=== PATIENT | male | born 1980 | race Hispanic/Latino ===

== ENCOUNTER 2017-12-24 00:32 | Inpatient (IN) | payer SELFPAY ==
[2017-12-24] MEDS ORDERED: ASPIRIN PO ONE (01:07)
[2017-12-24 01:25] LABS: Basophils # (Auto) 0.1 K/mm3 (0.0-0.1); Basophils % (Auto) 1.2 % (0.0-1.8); Eosinophils # (Auto) 1.1 K/mm3 (0.0-0.4); Eosinophils % (Auto) 14.5 % (0.0-4.3); Hematocrit 44.3 % (35.5-45.6); Hemoglobin 14.6 gm/dl (11.8-15.2); Lymphocytes # (Auto) 1.7 K/mm3 (1.2-5.4); Lymphocytes % (Auto) 21.4 % (13.4-35.0); Mean Corpuscular HGB Conc 33 % (32-34); Mean Corpuscular Hemoglobin 29 pg (28-32); Mean Corpuscular Volume 89 fl (84-94); Monocytes # (Auto) 1.1 K/mm3 (0.0-0.8); Monocytes % (Auto) 13.8 % (0.0-7.3); Platelet Count 236 K/mm3 (140-440); Red Blood Count 5.01 M/mm3 (3.65-5.03)
[2017-12-24 01:27] LABS: Red Cell Distribution Width 21.8 % (13.2-15.2)
--- NOTE | 2017-12-24 01:49 | XRay Report ---
FINAL REPORT PROCEDURE: XR CHEST ROUTINE 2V TECHNIQUE: PA and lateral chest radiographs were obtained. CPT 81039 HISTORY: JOSHUA/Chestpain COMPARISON: No prior studies are available for comparison. FINDINGS: Heart: Normal. Mediastinum/Vessels: Normal. Lungs/Pleural space: Lungs are expanded and clear. There are mild fibrotic changes in the right lung apex. There are no infiltrates, effusions or pneumothoraces.. Bony thorax: No acute osseous abnormality. Other: IMPRESSION: Normal heart and lungs..
[2017-12-24 01:50] LABS: INR 1.79 (0.87-1.13); Partial Thromboplastin Time 38.2 Sec. (24.2-36.6)
[2017-12-24 02:30] LABS: BUN/Creatinine Ratio 18; Blood Urea Nitrogen 16 mg/dL (9-20); Calcium 9.3 mg/dL (8.4-10.2); Hemolysis Index 5
--- NOTE | 2017-12-24 06:10 | Emergency Department Report ---
ED Chest Pain HPI - General Chief Complaint: Chest Pain Stated Complaint: CHEST,ARM PAIN,SOB Time Seen by Provider: 12/24/17 06:08 Source: patient Mode of arrival: Ambulatory Limitations: No Limitations - History of Present Illness Initial Comments: 37-year-old male who states he's had chest pain for the past 2 days. It somewhat radiates to the left arm and to the left lateral abdomen. He states it is increased by breathing. He admits shortness of breath which began yesterday. He states that he last had his INR checked 3 weeks ago. He has had previous hospitalizations for pulmonary embolism at [facility] and DVT in his right leg of uncertain cause. He has a history of CHF. He previously had an ejection fraction of 20% but states this has improved. He admits he missed several days of his Coumadin but started it back up again recently. Complaint: chest pain -: Gradual (gradual onset 2 days ago) Onset: during rest Pain Location: left chest Pain Radiation: none Severity: moderate Quality: aching Consistency: constant Improves With: nothing Worsens With: nothing re: other (cough). denies: nausea, vomting Other Symptoms: cough. denies: fever, syncope Treatments Prior to Arrival: none Aspirin use within the Past 7 Days: (0) No - Related Data Home Medications Medication Instructions Recorded Confirmed Last Taken Coreg 3.125 mg PO BID 12/24/17 12/24/17 Unknown Lasix 80 mg PO DAILY 12/24/17 12/24/17 Unknown Lisinopril 5 mg PO DAILY 12/24/17 12/24/17 Unknown Warfarin 5 mg PO DAILY 12/24/17 12/24/17 Unknown Allergies Allergy/AdvReac Type Severity Reaction Status Date / Time No Known Allergies Allergy Verified 12/24/17 06:20 Heart Score - HEART Score History: Slightly suspicious EKG: Non-specific Age: < 45 Risk factors: 1-2 risk factors Troponin: < normal limit HEART Score: 2 - Critical Actions Critical Actions: 0-3 pts:0.9-1.7%risk of adverse cardiac event.Candidate for discharge ED Review of Systems ROS: Stated complaint: CHEST,ARM PAIN,SOB Other details as noted in HPI Constitutional: denies: chills, fever Eyes: denies: eye pain, eye discharge, vision change ENT: denies: ear pain, throat pain Respiratory: cough (states white phlegm no hemoptysis), shortness of breath. denies: wheezing Cardiovascular: chest pain. denies: palpitations Endocrine: no symptoms reported Gastrointestinal: denies: abdominal pain, nausea, diarrhea Genitourinary: denies: urgency, dysuria Musculoskeletal: denies: back pain, joint swelling, arthralgia Skin: denies: rash, lesions Neurological: denies: headache, weakness, paresthesias Psychiatric: denies: anxiety, depression Hematological/Lymphatic: denies: easy bleeding, easy bruising ED Past Medical Hx - Past Medical History Hx Congestive Heart Failure: Yes Additional medical history: DVT, Overactive Bladder, Pneumonia - Surgical History Additional Surgical History: Tonsilectomy - Social History Smoking Status: Current Every Day Smoker Substance Use Type: None - Medications Home Medications: Home Medications Medication Instructions Recorded Confirmed Last Taken Type Coreg 3.125 mg PO BID 12/24/17 12/24/17 Unknown History Lasix 80 mg PO DAILY 12/24/17 12/24/17 Unknown History Lisinopril 5 mg PO DAILY 12/24/17 12/24/17 Unknown History Warfarin 5 mg PO DAILY 12/24/17 12/24/17 Unknown History ED Physical Exam - General Limitations: No Limitations General appearance: alert, in no apparent distress - Head Head exam: Present: atraumatic, normocephalic - Eye Eye exam: Present: normal appearance. Absent: scleral icterus - ENT ENT exam: Present: mucous membranes moist - Neck Neck exam: Present: normal inspection. Absent: tenderness, meningismus - Respiratory Respiratory exam: Present: normal lung sounds bilaterally. Absent: respiratory distress - Cardiovascular Cardiovascular Exam: Present: regular rate, normal rhythm. Absent: systolic murmur, diastolic murmur, rubs, gallop - GI/Abdominal GI/Abdominal exam: Present: soft, normal bowel sounds. Absent: distended, tenderness, guarding, rebound, rigid - Rectal Rectal exam: Present: deferred - Extremities Exam Extremities exam: Present: normal inspection - Back Exam Back exam: Present: normal inspection - Neurological Exam Neurological exam: Present: alert, oriented X3, CN II-XII intact. Absent: motor sensory deficit - Psychiatric Psychiatric exam: Present: normal affect, normal mood - Skin Skin exam: Present: warm, dry, intact, normal color. Absent: rash ED Course Vital Signs 12/24/17 12/24/17 12/24/17 01:00 06:20 07:35 Temperature 97.8 F Pulse Rate 99 H 108 H Respiratory 18 21 16 Rate Blood Pressure 110/73 Blood Pressure 126/85 [Left] O2 Sat by Pulse 100 97 Oximetry 12/24/17 08:30 Temperature Pulse Rate 100 H Respiratory 21 Rate Blood Pressure 133/77 Blood Pressure [Left] O2 Sat by Pulse 94 Oximetry - Reevaluation(s) Reevaluation #1: She does have a persistent tachycardia at about 110. He denies chest pain now. He is not short of breath. He states he's never had a catheterization. He's had a cardiomyopathy since May 2017. Be referred to the hospitalist service for further evaluation of his chest pain and CHF. 12/24/17 08:58 WHITLEY score - Whitley Score Age > 65: (0) No Aspirin use within the Past 7 Days: (0) No 3 or more CAD Risk Factors: (0) No 2 or more Angina events in past 24 hrs: (0) No Known CAD with more than 50% Stenosis: (0) No Elevated Cardiac Markers: (0) No ST Deviation Greater than 0.5mm: (0) No WHITLEY Score: 0 ED Medical Decision Making - Lab Data Result diagrams: 12/24/17 01:13 12/24/17 01:13 Laboratory Results - last 24 hr 12/24/17 12/24/17 12/24/17 01:13 01:13 01:13 WBC 7.9 RBC 5.01 Hgb 14.6 Hct 44.3 MCV 89 MCH 29 MCHC 33 RDW 21.8 H Plt Count 236 Lymph % (Auto) 21.4 Carver % (Auto) 13.8 H Eos % (Auto) 14.5 H Baso % (Auto) 1.2 Lymph # 1.7 Carver # 1.1 H Eos # 1.1 H Baso # 0.1 Seg Neutrophils % 49.1 Seg Neutrophils # 3.9 PT 21.9 H INR 1.79 H APTT 38.2 H Sodium 141 Potassium 4.7 Chloride 99.1 Carbon Dioxide 28 Anion Gap 19 BUN 16 Creatinine 0.9 Estimated GFR > 60 BUN/Creatinine Ratio 18 Glucose 71 L Calcium 9.3 Troponin T < 0.010 NT-Pro-B Natriuret Pep 1704 H 12/24/17 03:59 WBC RBC Hgb Hct MCV MCH MCHC RDW Plt Count Lymph % (Auto) Carver % (Auto) Eos % (Auto) Baso % (Auto) Lymph # Carver # Eos # Baso # Seg Neutrophils % Seg Neutrophils # PT INR APTT Sodium Potassium Chloride Carbon Dioxide Anion Gap BUN Creatinine Estimated GFR BUN/Creatinine Ratio Glucose Calcium Troponin T < 0.010 NT-Pro-B Natriuret Pep - EKG Data -: EKG Interpreted by Me EKG shows normal: sinus rhythm, axis, intervals, ST-T waves Rate: tachycardia - EKG Data Interpretation: other (incomplete right bundle branch block/prolonged QT) - Radiology Data interpreted by me: Lung Miranda: Focal areas of discoid atelectasis are identified in the posterior right upper lobe. Otherwise, the lungs are adequately aerated. No underlying parenchymal lung disease is appreciated. Pleural Spaces: Small layering left pleural effusion and trace right pleural effusion are identified. Musculoskeletal: Intact. Mild thoracic spondylosis. IMPRESSION: No evidence for pulmonary embolus. Borderline heart size, small left pleural effusion, trace right pleural effusion. Mild CHF? Critical care attestation.: If time is entered above; I have spent that time in minutes in the direct care of this critically ill patient, excluding procedure time. ED Disposition Clinical Impression: Subtherapeutic international normalized ratio (INR) Chest pain Qualifiers: Chest pain type: unspecified Qualified Code(s): R07.9 - Chest pain, unspecified Congestive heart failure Qualifiers: Heart failure type: unspecified Heart failure chronicity: acute on chronic Qualified Code(s): I50.9 - Heart failure, unspecified Disposition: OP ADMIT IP TO THIS HOSP Is pt being admited?: Yes Does the pt Need Aspirin: Yes Condition: Stable Instructions: Chest Pain (ED) Referrals: PRIMARY CARE, [Primary Care Provider] - 3-5 Days Time of Disposition: 09:00
[2017-12-24] MEDS ORDERED: LOVENOX SUB-Q ONE (06:25)
[2017-12-24] MEDS ORDERED: NORCO 5/325 PO ONE (07:14)
--- NOTE | 2017-12-24 08:16 | Cat Scan Report ---
CTA CHEST: HISTORY: Left chest pain, history of pulmonary embolus. COMPARISON: Chest x-ray performed 12/23/17. TECHNIQUE: Helical CT in 1.25mm intervals following IV contrast. Pulmonary embolus protocol. Sagittal and coronal reformatted images. Rotational MIP images. FINDINGS: Contrast bolus is satisfactory. No pulmonary embolus is identified. Thyroid gland: Normal. Tracheobronchial tree: Normal. Esophagus: Normal. Heart: The heart is borderline to mildly increased in size. Pericardium: Normal. Mediastinum: Normal. Lung Miranda: Focal areas of discoid atelectasis are identified in the posterior right upper lobe. Otherwise, the lungs are adequately aerated. No underlying parenchymal lung disease is appreciated. Pleural Spaces: Small layering left pleural effusion and trace right pleural effusion are identified. Musculoskeletal: Intact. Mild thoracic spondylosis. IMPRESSION: No evidence for pulmonary embolus. Borderline heart size, small left pleural effusion, trace right pleural effusion. Mild CHF?
[2017-12-24] MEDS ORDERED: PERCOCET 5/325 PO PRN (09:46)
[2017-12-24] MEDS ORDERED: SODIUM CHLORIDE FLUSH SYRINGE 10 ML IV PRN ×2 (09:46)
[2017-12-24] MEDS ORDERED: NITROSTAT SL PRN (09:46)
[2017-12-24] MEDS ORDERED: TYLENOL PO PRN (09:46)
[2017-12-24] MEDS ORDERED: ZOFRAN IV PRN (09:46)
--- NOTE | 2017-12-24 09:51 | History and Physical Report ---
History of Present Illness Date of examination: 12/24/17 Date of admission: 12/24/17 Chief complaint: chest pain History of present illness: 37 year old male with hx of chronic bronchitis, continued tobacco use >20pack year hx, cardiomypoathy and presumed CHF per patient with recent hospitalization about a month ago presenting to the ER with complaints of chest pain that started 2 days ago while at rest, 7/10 in intensity and now improved, unchanged in character from prior, with associated shortness of breath. Per patient he started having worseing shortness of breathing in the last two days with coughing spells and shortly after chest pain. Cough is non productive. He denies any fever, nausea, vomiting or diarrhea. He denies any sick contact except his recent hospitalization Past History Past Medical History: CAD, COPD, hypertension, hyperlipidemia Past Surgical History: No surgical history Social history: single, smoking Family history: no significant family history Medications and Allergies Allergies Allergy/AdvReac Type Severity Reaction Status Date / Time No Known Allergies Allergy Verified 12/24/17 06:20 Home Medications Medication Instructions Recorded Confirmed Last Taken Type Coreg 3.125 mg PO BID 12/24/17 12/24/17 Unknown History Lasix 80 mg PO DAILY 12/24/17 12/24/17 Unknown History Lisinopril 5 mg PO DAILY 12/24/17 12/24/17 Unknown History Warfarin 5 mg PO DAILY 12/24/17 12/24/17 Unknown History Active Meds: Active Medications Acetaminophen (Tylenol) 650 mg PO Q4H PRN PRN Reason: Pain MILD(1-3)/Fever >100.5/COLUNGA Aspirin (Ecotrin) 325 mg PO QDAY [facility] Atorvastatin Calcium (Lipitor) 40 mg PO QHS [facility] Miscellaneous Medication (Coreg) 3.125 mg PO BID [facility] Miscellaneous Medication (Lasix) 80 mg PO DAILY [facility] Miscellaneous Medication (Lisinopril) 5 mg PO DAILY [facility] Miscellaneous Medication (Warfarin) 5 mg PO DAILY [facility] Nitroglycerin (Nitrostat) 0.4 mg SL Q5M PRN PRN Reason: Chest Pain Ondansetron HCl (Zofran) 4 mg IV Q8H PRN PRN Reason: Nausea And Vomiting Oxycodone/Acetaminophen (Percocet 5/325) 1 tab PO Q6H PRN PRN Reason: Pain, Moderate (4-6) Sodium Chloride (Sodium Chloride Flush Syringe 10 Ml) 10 ml IV PRN PRN PRN Reason: LINE FLUSH Sodium Chloride (Sodium Chloride Flush Syringe 10 Ml) 10 ml IV BID ESTHER Sodium Chloride (Sodium Chloride Flush Syringe 10 Ml) 10 ml IV PRN PRN PRN Reason: LINE FLUSH Review of Systems Constitutional: no weight loss, no weight gain, no fever, no chills, no sweats, no fatigue, no weakness, no malaise, no lethargy Cardiovascular: chest pain, shortness of breath, dyspnea on exertion, no rapid/ irregular heart beat, no lightheadedness, no paroxysmal nocturnal dyspnea Respiratory: cough, shortness of breath, dyspnea on exertion, wheezing, no cough with sputum, no hemoptysis, no congestion Gastrointestinal: no abdominal pain, no nausea, no vomiting, no diarrhea, no constipation, no coffee ground emesis Integumentary: no rash Exam - Constitutional Vitals: Temp Pulse Resp BP Pulse Ox 97.8 F 107 H 18 140/102 97 12/24/17 01:00 12/24/17 09:30 12/24/17 09:30 12/24/17 09:30 12/24/17 09:30 General appearance: Present: mild distress - EENT Eyes: Present: PERRL, EOM intact - Neck Neck: Present: normal ROM - Respiratory Respiratory: bilateral: wheezing - Cardiovascular Rhythm: regular Heart Sounds: Present: S1 & S2. Absent: systolic murmur, diastolic murmur - Extremities Extremities: no ischemia, pulses intact, pulses symmetrical, No edema, normal temperature, Full ROM Peripheral Pulses: within normal limits - Abdominal General gastrointestinal: Present: soft, non-tender, non-distended, normal bowel sounds - Integumentary Integumentary: Present: clear, warm, dry - Musculoskeletal Musculoskeletal: strength equal bilaterally - Psychiatric Psychiatric: appropriate mood/affect, intact judgment & insight, memory intact, cooperative - Neurologic Neurologic: CNII-XII intact, moves all extremities - Allied Health Allied health notes reviewed: nursing Results - Labs CBC & Chem 7: 12/24/17 10:16 12/24/17 10:16 Labs: Laboratory Last Values WBC 7.9 K/mm3 (4.5-11.0) 12/24/17 01:13 RBC 5.01 M/mm3 (3.65-5.03) 12/24/17 01:13 Hgb 14.6 gm/dl (11.8-15.2) 12/24/17 01:13 Hct 44.3 % (35.5-45.6) 12/24/17 01:13 MCV 89 fl (84-94) 12/24/17 01:13 MCH 29 pg (28-32) 12/24/17 01:13 MCHC 33 % (32-34) 12/24/17 01:13 RDW 21.8 % (13.2-15.2) H 12/24/17 01:13 Plt Count 236 K/mm3 (140-440) 12/24/17 01:13 Lymph % (Auto) 21.4 % (13.4-35.0) 12/24/17 01:13 [place] % (Auto) 13.8 % (0.0-7.3) H 12/24/17 01:13 Eos % (Auto) 14.5 % (0.0-4.3) H 12/24/17 01:13 Baso % (Auto) 1.2 % (0.0-1.8) 12/24/17 01:13 Lymph # 1.7 K/mm3 (1.2-5.4) 12/24/17 01:13 [place] # 1.1 K/mm3 (0.0-0.8) H 12/24/17 01:13 Eos # 1.1 K/mm3 (0.0-0.4) H 12/24/17 01:13 Baso # 0.1 K/mm3 (0.0-0.1) 12/24/17 01:13 Seg Neutrophils % 49.1 % (40.0-70.0) 12/24/17 01:13 Seg Neutrophils # 3.9 K/mm3 (1.8-7.7) 12/24/17 01:13 PT 21.9 Sec. (12.2-14.9) H 12/24/17 01:13 INR 1.79 (0.87-1.13) H 12/24/17 01:13 APTT 38.2 Sec. (24.2-36.6) H 12/24/17 01:13 Sodium 141 mmol/L (137-145) 12/24/17 01:13 Potassium 4.7 mmol/L (3.6-5.0) 12/24/17 01:13 Chloride 99.1 mmol/L (98-107) 12/24/17 01:13 Carbon Dioxide 28 mmol/L (22-30) 12/24/17 01:13 Anion Gap 19 mmol/L 12/24/17 01:13 BUN 16 mg/dL (9-20) 12/24/17 01:13 Creatinine 0.9 mg/dL (0.8-1.5) 12/24/17 01:13 Estimated GFR > 60 ml/min 12/24/17 01:13 BUN/Creatinine Ratio 18 % 12/24/17 01:13 Glucose 71 mg/dL (75-100) L 12/24/17 01:13 Calcium 9.3 mg/dL (8.4-10.2) 12/24/17 01:13 Troponin T < 0.010 ng/mL (0.00-0.029) 12/24/17 06:50 NT-Pro-B Natriuret Pep 1704 pg/mL (0-450) H 12/24/17 01:13 - Imaging and Cardiology Chest x-ray: image reviewed (no acute pathology) Assessment and Plan Assessment and plan: 37 year old male with hx of chronic bronchitis, continued tobacco use >20pack year hx, cardiomypoathy and presumed CHF per patient with recent hospitalization about a month ago presenting to the ER with complaints of chest pain that started 2 days ago while at rest, 7/10 in intensity and now improved, unchanged in character from prior, with associated shortness of breath. Atypical chest pain with likely musculoskeletal etiology from cough Acute on Chronic bronchitis COPD with acute exacerbation Acute on chronic Respiratory failure with demonstrable wheezing Tobacco use disorder cardiomyopathy HTN PE/DVT per hx Plan Admit to Tele Cardiac consult Dounebs, IV steroids, Emperic abx Obtain records from [facility] Tobacco cessation 15 mins O2, statin, asa, coumadin, Lisinopril DVT/GI prophy Patient requires inpatient admission due to cardiac hx of impending respiratory failure without adequate treatment Advance Directives: Yes Plan of care discussed with patient/family: Yes
[2017-12-24] MEDS ORDERED: NON-FORMULARY (Coreg 3.125 MG) PO SCH (10:00)
[2017-12-24] MEDS ORDERED: WARFARIN 5 MG PO SCH (10:00)
[2017-12-24] MEDS ORDERED: NON-FORMULARY (Lisinopril 5 MG) PO SCH (10:00)
[2017-12-24] MEDS ORDERED: LASIX 80 MG PO SCH (10:00)
[2017-12-24 10:34] LABS: Basophils # (Auto) 0.1 K/mm3 (0.0-0.1); Basophils % (Auto) 1.3 % (0.0-1.8); Eosinophils # (Auto) 0.9 K/mm3 (0.0-0.4); Eosinophils % (Auto) 12.6 % (0.0-4.3); Hematocrit 47.4 % (35.5-45.6); Lymphocytes # (Auto) 1.3 K/mm3 (1.2-5.4); Lymphocytes % (Auto) 18.7 % (13.4-35.0); Mean Corpuscular HGB Conc 34 % (32-34); Mean Corpuscular Hemoglobin 30 pg (28-32); Mean Corpuscular Volume 88 fl (84-94); Monocytes # (Auto) 0.8 K/mm3 (0.0-0.8); Monocytes % (Auto) 11.1 % (0.0-7.3); Platelet Count 246 K/mm3 (140-440); Red Blood Count 5.39 M/mm3 (3.65-5.03)
[2017-12-24] MEDS ORDERED: LASIX ONE (10:42)
[2017-12-24] MEDS ORDERED: PROVENTIL IH PRN (10:46)
[2017-12-24] MEDS: SODIUM CHLORIDE FLUSH SYRINGE 10 ML IV SCH ×2 (10:48→22:45)
[2017-12-24] MEDS: LASIX PO SCH (10:48)
[2017-12-24] MEDS: ZESTRIL PO SCH (10:48)
[2017-12-24] MEDS: COREG PO SCH ×2 (10:48→22:47)
[2017-12-24 10:54] LABS: BUN/Creatinine Ratio 18; Blood Urea Nitrogen 14 mg/dL (9-20); Calcium 9.4 mg/dL (8.4-10.2); Hemolysis Index 14
[2017-12-24] MEDS ORDERED: SOLU-Medrol IV SCH (12:00)
--- NOTE | 2017-12-24 12:34 | Consultation ---
History of Present Illness Consult date: 12/24/17 Consult reason: chest pain History of present illness: Mr Song is a 37 year old male with a history of nonischemic cardiomyopathy by stress thallium test that reports no ischemia but an ejection fraction of 20% by echocardiogram. He is on medical therapy and dietary restriction, which the patient reports he is compliant with. He has a history of DVT/PE and is on warfarin for oral anticoagulation therapy. He presents to the emergency with complaints of shortness of breath and chest pain thus this cardiac consultation. Patient also reports coughs and congestion. He denies fever and chills. He denies lower extremity edema. Chest x -ray reports no evidence of heart failure. Labs shows an INR of 1.79. He has a normal WBC. His ECG shows a sinus rhythm with a right bundle branch. Medications and Allergies Allergies Allergy/AdvReac Type Severity Reaction Status Date / Time No Known Allergies Allergy Verified 12/24/17 06:20 Home Medications Medication Instructions Recorded Confirmed Last Taken Type Coreg 3.125 mg PO BID 12/24/17 12/24/17 Unknown History Lasix 80 mg PO DAILY 12/24/17 12/24/17 Unknown History Lisinopril 5 mg PO DAILY 12/24/17 12/24/17 Unknown History Warfarin 5 mg PO DAILY 12/24/17 12/24/17 Unknown History Active Meds: Active Medications Acetaminophen (Tylenol) 650 mg PO Q4H PRN PRN Reason: Pain MILD(1-3)/Fever >100.5/COLUNGA Albuterol (Proventil) 2.5 mg IH Q4HRT PRN PRN Reason: Shortness Of Breath Albuterol/Ipratropium (Duoneb *Not For Prn Use*) 1 ampul IH TIDRT [facility] Aspirin (Ecotrin) 325 mg PO QDAY [facility] Atorvastatin Calcium (Lipitor) 40 mg PO QHS [facility] Carvedilol (Coreg) 3.125 mg PO BID [facility] Last Admin: 12/24/17 10:48 Dose: 3.125 mg Furosemide (Lasix) 80 mg PO QDAY [facility] Last Admin: 12/24/17 10:48 Dose: 80 mg Lisinopril (Zestril) 5 mg PO QDAY [facility] Last Admin: 12/24/17 10:48 Dose: 5 mg Methylprednisolone Sodium Succinate (Solu-Medrol) 40 mg IV Q12HR [facility] Nitroglycerin (Nitrostat) 0.4 mg SL Q5M PRN PRN Reason: Chest Pain Ondansetron HCl (Zofran) 4 mg IV Q8H PRN PRN Reason: Nausea And Vomiting Oxycodone/Acetaminophen (Percocet 5/325) 1 tab PO Q6H PRN PRN Reason: Pain, Moderate (4-6) Sodium Chloride (Sodium Chloride Flush Syringe 10 Ml) 10 ml IV BID [facility] Last Admin: 12/24/17 10:48 Dose: 10 ml Sodium Chloride (Sodium Chloride Flush Syringe 10 Ml) 10 ml IV PRN PRN PRN Reason: LINE FLUSH Warfarin Sodium (Coumadin) 5 mg PO DAILY@1700 [facility] Physical Examination Vital Signs Temp Pulse Resp BP Pulse Ox 97.8 F 99 H 18 110/73 100 12/24/17 01:00 12/24/17 01:00 12/24/17 01:00 12/24/17 01:00 12/24/17 01:00 General appearance: no acute distress HEENT: Positive: PERRL Cardiac: Positive: Reg Rate and Rhythm Results 12/24/17 10:16 12/24/17 10:16 Coagulation 12/24/17 Range/Units 01:13 PT 21.9 H (12.2-14.9) Sec. INR 1.79 H (0.87-1.13) APTT 38.2 H (24.2-36.6) Sec. CBC 12/24/17 12/24/17 Range/Units 01:13 10:16 WBC 7.9 6.9 (4.5-11.0) K/mm3 RBC 5.01 5.39 H (3.65-5.03) M/mm3 Hgb 14.6 16.0 H (11.8-15.2) gm/dl Hct 44.3 47.4 H (35.5-45.6) % Plt Count 236 246 (140-440) K/mm3 Lymph # 1.7 1.3 (1.2-5.4) K/mm3 [place] # 1.1 H 0.8 (0.0-0.8) K/mm3 Eos # 1.1 H 0.9 H (0.0-0.4) K/mm3 Baso # 0.1 0.1 (0.0-0.1) K/mm3 Comprehensive Metabolic Panel 12/24/17 12/24/17 Range/Units 01:13 10:16 Sodium 141 136 L (137-145) mmol/L Potassium 4.7 4.0 (3.6-5.0) mmol/L Chloride 99.1 96.2 L (98-107) mmol/L Carbon Dioxide 28 28 (22-30) mmol/L BUN 16 14 (9-20) mg/dL Creatinine 0.9 0.8 (0.8-1.5) mg/dL Glucose 71 L 125 H (75-100) mg/dL Calcium 9.3 9.4 (8.4-10.2) mg/dL Assessment and Plan Shortness of breath Atypical chest pain negative MPI EF 20-25% by echo 09/2017 Tobacco abuse Hx of PE/DVT on warfarin for oral anticoagulation. INR 1.79 on presentation.
[2017-12-24 14:23] LABS: INR 2.06 (0.87-1.13)
[2017-12-24] MEDS: DUONEB *Not for PRN Use IH SCH ×2 (15:35→19:36)
[2017-12-24] MEDS ORDERED: COUMADIN PO SCH (17:00)
[2017-12-24] MEDS: TORADOL IV SCH ×2 (18:47→21:38)
[2017-12-24] MEDS: SOLU-Medrol IV SCH (22:46)
[2017-12-24] MEDS: ZITHROMAX PO SCH (22:52)
[2017-12-25 05:40] LABS: INR 1.71 (0.87-1.13)
[2017-12-25] MEDS: SOLU-Medrol IV SCH (06:20)
[2017-12-25] MEDS: TORADOL IV SCH (06:20)
--- NOTE | 2017-12-25 09:25 | Progress Note ---
Subjective Date of service: 12/25/17 Interval history: Pt had 4 beat NSVT overnight. remained stable, he is off floor, continues to smoke. The patient has a history of nonischemic cardiomyopathy, DVT and PE on warfarin therapy, COPD on chronic tobacco abuse. He presents to the hospital with atypical, nonexertional chest pain. The chest pain is pleuritic, aggravated by his coughing spells, and is positional. A chest x-ray shows cardiomegaly and clear lungs. A CT of the chest was negative for pulmonary embolism. ECG was this mild sinus tachycardia with right bundle branch block, no acute ST or T- wave changes. INR was 1.79 on warfarin. Recommendations: Chest pain does not appear to be angina, more likely musculoskeletal associated with his chronic lung disease, bronchitis and coughing. We will continue medical therapy for his dilated cardiomyopathy. There is no clinical or radiologic evidence of fluid overload, conservative cardiac management. will increase coreg dosage for NSVT. Objective Vital Signs Temp Pulse Pulse Pulse Resp Resp Resp 12/25/17 08:31 98.2 F 106 H 18 12/25/17 06:50 17 12/25/17 06:20 17 12/25/17 04:02 97.9 F 84 20 12/25/17 00:08 67 20 12/24/17 22:47 85 12/24/17 22:00 80 17 12/24/17 21:31 17 12/24/17 20:00 98.2 F 85 20 12/24/17 19:52 83 12/24/17 19:46 88 16 12/24/17 19:36 90 16 12/24/17 19:17 18 12/24/17 17:45 98.0 F 85 18 12/24/17 11:54 97.6 F 100 H 20 12/24/17 11:52 103 H 12/24/17 10:00 106 H 22 12/24/17 09:30 107 H 18 BP BP Pulse Ox 12/25/17 08:31 123/86 96 12/25/17 06:50 12/25/17 06:20 12/25/17 04:02 122/79 95 12/25/17 00:08 112/75 95 12/24/17 22:47 119/72 12/24/17 22:00 12/24/17 21:31 12/24/17 20:00 119/72 95 12/24/17 19:52 12/24/17 19:46 12/24/17 19:36 12/24/17 19:17 12/24/17 17:45 117/47 100 12/24/17 11:54 118/74 76 L 12/24/17 11:52 12/24/17 10:00 140/76 97 12/24/17 09:30 140/102 97 - Labs and Meds Coagulation 12/24/17 12/25/17 Range/Units 13:30 04:49 PT 24.5 H 21.1 H (12.2-14.9) Sec. INR 2.06 H 1.71 H (0.87-1.13) CBC 12/24/17 Range/Units 10:16 WBC 6.9 (4.5-11.0) K/mm3 RBC 5.39 H (3.65-5.03) M/mm3 Hgb 16.0 H (11.8-15.2) gm/dl Hct 47.4 H (35.5-45.6) % Plt Count 246 (140-440) K/mm3 Lymph # 1.3 (1.2-5.4) K/mm3 [place] # 0.8 (0.0-0.8) K/mm3 Eos # 0.9 H (0.0-0.4) K/mm3 Baso # 0.1 (0.0-0.1) K/mm3 Comprehensive Metabolic Panel 12/24/17 Range/Units 10:16 Sodium 136 L (137-145) mmol/L Potassium 4.0 (3.6-5.0) mmol/L Chloride 96.2 L (98-107) mmol/L Carbon Dioxide 28 (22-30) mmol/L BUN 14 (9-20) mg/dL Creatinine 0.8 (0.8-1.5) mg/dL Glucose 125 H (75-100) mg/dL Calcium 9.4 (8.4-10.2) mg/dL
--- NOTE | 2017-12-25 09:45 | Discharge Summary ---
Providers - Providers Date of Admission: 12/24/17 09:31 Attending physician: JJ MORA MD 12/24/17 Consult to Cardiac Rehabilitation [CONS] Routine Reason For Exam: Phase I 12/24/17 09:46 Consult to Physician [CONS] Routine Comment: Consulting Provider: YAN WOOTEN Physician Instructions: Reason For Exam: cardiomyopathy, chest pain Primary care physician: [employer] Hospitalization Reason for admission: respiratory failure Condition: Stable Hospital course: 37 year old male with hx of chronic bronchitis, continued tobacco use >20pack year hx, cardiomypoathy and presumed CHF per patient with recent hospitalization about a month ago presenting to the ER with complaints of chest pain that started 2 days ago while at rest, 7/10 in intensity and now improved, unchanged in character from prior, with associated shortness of breath. Per patient he started having worsening shortness of breathing in the last two days with coughing spells and shortly after chest pain. Cough is non productive. He denies any fever, nausea, vomiting or diarrhea. He denies any sick contact except his recent hospitalization. Patient was seen by cardiology and demeed chest pain not cardiac in nature and likely secondary to pulmonary condition. Patient continued to leave the floor while in the hospital and without worsening shortness of breath. DESPITE MUtiple advise against tobacco patient continued to go out to smoke. Atypical chest pain with likely musculoskeletal etiology from cough Acute on Chronic bronchitis COPD with acute exacerbation Acute on chronic Respiratory failure with demonstrable wheezing Tobacco use disorder cardiomyopathy HTN PE/DVT per hx Disposition: DC-01 TO HOME OR SELFCARE Time spent for discharge: 35 mins Core Measure Documentation - Palliative Care Palliative Care/ Comfort Measures: Not Applicable - Core Measures Any of the following diagnoses?: none - VTE Discharge Requirements Deep Vein Thrombosis/Pulmonary Embolism Present on Admission: No Exam - Physical Exam Narrative exam: VITAL SIGNS: Reviewed. GENERAL: The patient appeared well nourished and normally developed. Vital signs as documented. HEAD: No signs of head trauma. EYES: Pupils are equal. Extraocular motions intact. EARS: Hearing grossly intact. MOUTH: Oropharynx is normal. NECK: No adenopathy, no JVD. CHEST: Chest with clear breath sounds bilaterally. No wheezes, rales, or rhonchi. CARDIAC: Regular rate and rhythm. S1 and S2, without murmurs, gallops, or rubs. VASCULAR: No Edema. Peripheral pulses normal and equal in all extremities. ABDOMEN: Soft, without detectable tenderness. No sign of distention. No rebound or guarding, and no masses palpated. Bowel Sounds normal. MUSCULOSKELETAL: Good range of motion of all major joints. Extremities without clubbing, cyanosis or edema. NEUROLOGIC EXAM: Alert and oriented x 3. No focal sensory or strength deficits. Speech normal. Follows commands. PSYCHIATRIC: Mood normal. SKIN: No rash or lesions. - Constitutional Vitals: Temp Pulse Resp BP Pulse Ox 98.2 F 106 H 18 123/86 96 12/25/17 08:31 12/25/17 08:31 12/25/17 08:31 12/25/17 08:31 12/25/17 08:31 Plan Activity: advance as tolerated, fall precautions Diet: low salt Special Instructions: smoking cessation Follow up with: PRIMARY CAREMD [Primary Care Provider] - 3-5 Days YAN WOOTEN MD [Staff Physician] - 7 Days GRACIE DALTON MD [Staff Physician] - 7 Days Forms: Warfarin Discharge Instruction Prescriptions: AtorvaSTATin [Lipitor] 40 mg PO QHS #30 tablet ALBUTEROL Inhaler(NF) [VENTOLIN Inhaler(NF)] 1 puff IH QID PRN #1 inha PRN Reason: Shortness Of Breath Azithromycin [Zithromax TAB] 600 mg PO Q24HR #5 tablet Carvedilol [Coreg] 6.25 mg PO BID #60 tablet Fluticasone/Salmeterol [Advair 250-50 Diskus] 1 each IH BID #1 blst.w.dev Lasix 80 mg PO DAILY #30 Lisinopril 5 mg PO DAILY #30 Prednisone [predniSONE 10 mg (6-Day Pack, 21 Tabs)] 10 mg PO .TAPER #1 tab.ds.pk Warfarin 5 mg PO DAILY #30
[2017-12-25] MEDS ORDERED: COREG PO SCH (10:00)
[2017-12-25] MEDS ORDERED: ECOTRIN PO SCH (10:00)
[2017-12-25] MEDS: ZESTRIL PO SCH (10:40)
[2017-12-25] MEDS: SODIUM CHLORIDE FLUSH SYRINGE 10 ML IV SCH (10:41)
[2017-12-25] MEDS: LASIX PO SCH (10:41)
[2017-12-25] MEDS: DUONEB *Not for PRN Use IH SCH (10:49)
[2017-12-25 11:27] VITALS: BP 125/74
[2017-12-25] MEDS: ZITHROMAX PO SCH (11:37)
[2017-12-25] MEDS ORDERED: PNEUMOVAX 23 IM ONE (12:00)
== END 2017-12-25 13:18 | disposition home or self-care (01) | DRG 189 ==
LOC: ED 00:32 → 4A 09:31
PROVIDERS: ADMIT Internal Medicine; ATTEND Internal Medicine
PROC: 3E0234Z Introduction of Serum, Toxoid and Vaccine into Muscle, Percutaneous Approach (ICD-10-PCS; principal; 2017-12-25)
DX: J96.20 Acute and chronic respiratory failure, unspecified whether with hypoxia or hypercapnia (principal); I42.9 Cardiomyopathy, unspecified; J44.1 Chronic obstructive pulmonary disease with (acute) exacerbation; J44.0 Chronic obstructive pulmonary disease with (acute) lower respiratory infection; I47.2 Ventricular tachycardia; R79.1 Abnormal coagulation profile; I50.9 Heart failure, unspecified; F17.210 Nicotine dependence, cigarettes, uncomplicated; I25.10 Atherosclerotic heart disease of native coronary artery without angina pectoris; J44.9 Chronic obstructive pulmonary disease, unspecified; E78.5 Hyperlipidemia, unspecified; J20.9 Acute bronchitis, unspecified; M47.894 Other spondylosis, thoracic region; I11.0 Hypertensive heart disease with heart failure; Z23 Encounter for immunization; Z79.01 Long term (current) use of anticoagulants; Z79.899 Other long term (current) drug therapy; Z86.711 Personal history of pulmonary embolism; Z86.718 Personal history of other venous thrombosis and embolism; Z90.89 Acquired absence of other organs; Z71.6 Tobacco abuse counseling
CPT/HCPCS: 36415; 71046; 71275; 80048; 83880; 84484; 85025; 85610; 85730; 90732; 93005; 93010; 93970; 94640; 99285; A9270-GY; J1650; J1885; J2920; Q9967

== ENCOUNTER 2021-12-27 10:49 | Emergency (ER) | payer SELFPAY ==
--- NOTE | 2021-12-27 11:12 | Event Note ---
ED Screening Note Date of service: 12/27/21 Time: 11:08 ED Screening Note: 41 Y male with hx of CHF , HTn, x 3week ago chest pain and SOB for 3 to 4 days on beta courtney and manuela inhibitor This initial assessment/diagnostic orders/clinical plan/treatment(s) is/are subject to change based on patients health status, clinical progression and re- assessment by fellow clinical providers in the ED. Further treatment and workup at subsequent clinical providers discretion. Patient/guardian urged not to elope from the ED as their condition may be serious if not clinically assessed and managed. Initial orders include:
--- NOTE | 2021-12-27 11:40 | XRay Report ---
CHEST 2 VIEWS INDICATION / CLINICAL INFORMATION: chest pain with SOB. COMPARISON: 12/24/2017 FINDINGS: SUPPORT DEVICES: None. HEART / MEDIASTINUM: No significant abnormality. LUNGS / PLEURA: No significant pulmonary or pleural abnormality. No pneumothorax. ADDITIONAL FINDINGS: No significant additional findings. IMPRESSION: 1. No acute findings. Signer Name: Jacrlos Sawyer MD Signed: 12/27/2021 11:36 AM Workstation Name: [id number]
[2021-12-27 11:41] LABS: Hemoglobin 14.2 gm/dl (11.8-15.2); Mean Corpuscular HGB Conc 35 % (32-34); Mean Corpuscular Volume 94 fl (84-94); Platelet Count 181 K/mm3 (140-440); Red Blood Count 4.36 M/mm3 (3.65-5.03); Red Cell Distribution Width 14.2 % (13.2-15.2)
[2021-12-27 12:17] LABS: Alanine Aminotransferase 31 units/L (7-56); Albumin 4.5 g/dL (3.9-5); BUN/Creatinine Ratio 13; Blood Urea Nitrogen 17 mg/dL (9-20); Calcium 8.9 mg/dL (8.4-10.2); Hemolysis Index 13
[2021-12-27 14:22] LABS: Band Neutrophils # (Manual) 0.3 K/mm3; Basophils % (Manual) 0 % (0.0-1.8); Total Cells Counted 100
[2021-12-27 14:23] LABS: Platelet Estimate Consistent w Auto; RBC Morphology Normal
[2021-12-27] MEDS ORDERED: ACETAMINOPHEN 500 MG TAB PO ONE (19:24)
--- NOTE | 2021-12-27 21:59 | Emergency Department Report ---
ED Chest Pain HPI - General Chief Complaint: Chest Pain Stated Complaint: JOSHUA, PAIN Time Seen by Provider: 12/27/21 21:43 Source: patient Mode of arrival: Ambulatory Limitations: No Limitations - History of Present Illness Initial Comments: 41yo M with hx of CHF , HTn, who now present with chest pain and SOB for 3 to 4 days associated with generalized body aches. He also reports fever of 101 degrees at home. No other modifying or associated factors reported. MD Complaint: chest pain Severity scale (0 -10): 3 - Related Data Previous Rx's Medication Instructions Recorded Last Taken Type ALBUTEROL Inhaler(NF) [VENTOLIN 1 puff IH QID PRN #1 inha 12/25/17 Unknown Rx Inhaler(NF)] AtorvaSTATin [Lipitor] 40 mg PO QHS #30 tablet 12/25/17 Unknown Rx Azithromycin [Zithromax TAB] 600 mg PO Q24HR #5 tablet 12/25/17 Unknown Rx Fluticasone/Salmeterol [Advair 1 each IH BID #1 blst.w.dev 12/25/17 Unknown Rx 250-50 Diskus] Lasix 80 mg PO DAILY #30 12/25/17 Unknown Rx Lisinopril 5 mg PO DAILY #30 12/25/17 Unknown Rx Prednisone [predniSONE 10 mg 10 mg PO .TAPER #1 tab.ds.pk 12/25/17 Unknown Rx (6-Day Pack, 21 Tabs)] Warfarin 5 mg PO DAILY #30 12/25/17 Unknown Rx carvediloL [Coreg] 6.25 mg PO BID #60 tablet 12/25/17 Unknown Rx Allergies Allergy/AdvReac Type Severity Reaction Status Date / Time No Known Allergies Allergy Verified 12/24/17 06:20 Heart Score - HEART Score History: Slightly suspicious EKG: Normal Age: < 45 Risk factors: 1-2 risk factors Troponin: < normal limit HEART Score: 1 - EKG Read Time Time EKG Completed: 11:15 EKG Read Time: 11:20 - Critical Actions Critical Actions: 0-3 pts:0.9-1.7%risk of adverse cardiac event.Candidate for discharge ED Review of Systems ROS: Stated complaint: JOSHUA, PAIN Other details as noted in HPI Comment: All other systems reviewed and negative Constitutional: fever, weakness Cardiovascular: chest pain Musculoskeletal: myalgia ED Past Medical Hx - Past Medical History Hx Congestive Heart Failure: Yes Hx Diabetes: No Hx Asthma: No Hx COPD: No Hx HIV: No Additional medical history: DVT, Overactive Bladder, Pneumonia - Surgical History Additional Surgical History: Tonsilectomy - Social History Smoking Status: Current Every Day Smoker - Medications Home Medications: Home Medications Medication Instructions Recorded Confirmed Last Taken Type ALBUTEROL Inhaler(NF) [VENTOLIN 1 puff IH QID PRN #1 inha 12/25/17 Unknown Rx Inhaler(NF)] AtorvaSTATin [Lipitor] 40 mg PO QHS #30 tablet 12/25/17 Unknown Rx Azithromycin [Zithromax TAB] 600 mg PO Q24HR #5 tablet 12/25/17 Unknown Rx Fluticasone/Salmeterol [Advair 1 each IH BID #1 blst.w.dev 12/25/17 Unknown Rx 250-50 Diskus] Lasix 80 mg PO DAILY #30 12/25/17 Unknown Rx Lisinopril 5 mg PO DAILY #30 12/25/17 Unknown Rx Prednisone [predniSONE 10 mg 10 mg PO .TAPER #1 tab.ds.pk 12/25/17 Unknown Rx (6-Day Pack, 21 Tabs)] Warfarin 5 mg PO DAILY #30 12/25/17 Unknown Rx carvediloL [Coreg] 6.25 mg PO BID #60 tablet 12/25/17 Unknown Rx ED Physical Exam - General Limitations: No Limitations General appearance: alert, in no apparent distress - Head Head exam: Present: normal inspection - Eye Eye exam: Present: normal appearance Pupils: Present: normal accommodation - ENT ENT exam: Present: normal exam, normal orophraynx, mucous membranes moist - Neck Neck exam: Present: normal inspection, full ROM. Absent: tenderness - Respiratory Respiratory exam: Present: normal lung sounds bilaterally. Absent: respiratory distress, accessory muscle use - Cardiovascular Cardiovascular Exam: Present: normal rhythm, tachycardia, normal heart sounds - GI/Abdominal GI/Abdominal exam: Present: soft, normal bowel sounds. Absent: distended, tenderness - Extremities Exam Extremities exam: Present: normal inspection, normal capillary refill. Absent: pedal edema - Back Exam Back exam: Absent: tenderness - Neurological Exam Neurological exam: Present: alert, oriented X3 - Psychiatric Psychiatric exam: Present: normal affect, normal mood - Skin Skin exam: Present: warm, normal color ED Course Vital Signs 09/12/27/21 12/27/21 11:10 19:22 21:27 Temperature 101.7 F H 102.5 F H Pulse Rate 126 H 123 H Respiratory 22 18 Rate Blood Pressure 135/87 Blood Pressure 143/65 [Right] O2 Sat by Pulse 95 95 92 Oximetry 12/27/21 12/27/21 12/27/21 21:30 21:35 21:40 Temperature 99.1 F Pulse Rate 102 H 104 H 101 H Respiratory 21 18 Rate Blood Pressure Blood Pressure 140/73 [Right] O2 Sat by Pulse 96 96 97 Oximetry 12/27/21 12/27/21 12/27/21 21:46 22:00 22:16 Temperature Pulse Rate 101 H 100 H 98 H Respiratory 18 20 20 Rate Blood Pressure Blood Pressure [Right] O2 Sat by Pulse 97 96 96 Oximetry 12/27/21 12/27/21 12/27/21 22:30 22:46 23:00 Temperature Pulse Rate 99 H 95 H 90 Respiratory 20 20 17 Rate Blood Pressure Blood Pressure [Right] O2 Sat by Pulse 96 96 97 Oximetry 12/27/21 12/27/21 23:16 23:30 Temperature Pulse Rate 89 87 Respiratory 17 20 Rate Blood Pressure Blood Pressure [Right] O2 Sat by Pulse 96 96 Oximetry WHITLEY score - Whitley Score Age > 65: (0) No Aspirin use within the Past 7 Days: (0) No 3 or more CAD Risk Factors: (0) No 2 or more Angina events in past 24 hrs: (0) No Known CAD with more than 50% Stenosis: (0) No Elevated Cardiac Markers: (0) No ST Deviation Greater than 0.5mm: (0) No WHITLEY Score: 0 ED Medical Decision Making - Lab Data Result diagrams: 12/27/21 11:29 12/27/21 11:29 - EKG Data -: EKG Interpreted by Ca EKG shows normal: sinus rhythm Rate: tachycardia - EKG Data 12/27/21 22:01 EKG noted with normal sinus tachycardia at a rate of [address] elevation or depression in this borderline ECG. - Medical Decision Making Here with chest pain/pressure--differential could be but not limited to myocardial infarction, pulmonary embolism, costochondritis, anxiety, gastritis, GERD, pancreatitis, and or pyelonephritis--in order to rule out the above-- so will go ahead and order routine cardiopulmonary work-up that include troponin, EKG, chest x-ray, BNP, CKMB, and CBC, CMP and urinalysis for any correctable infectious process or electrolyte abnormality as a cause. With this patient tachycardia we will go ahead and start IV fluid hydration but gently considering CHF to prevent fluid overload--this could be some viral infection considering generalized body aches with fever--noted with unremarkable wbc or cardiac enzymes -- Critical care attestation.: If time is entered above; I have spent that time in minutes in the direct care of this critically ill patient, excluding procedure time. ED Disposition Clinical Impression: Non-cardiac chest pain, Generalized body aches, Acute viral syndrome Disposition: HOME / SELF CARE / HOMELESS Is pt being admited?: No Does the pt Need Aspirin: No Condition: Stable Instructions: Viral Respiratory Infection, [id number], Nonspecific Chest Pain, Adult, [id number], Infection Prevention in the Home Additional Instructions: Increased your daily fluid to help your hydration Call and follow-up with your primary doctor in the next 3 to 5 days for progress Please do not hesitate to call or return to emergency room if your symptoms worsen It is okay to take Tylenol/ibuprofen every 6-8 hours as needed for pain or fever Referrals: [facility] [Referring] - 3-5 Days Time of Disposition: 00:36
[2021-12-28 01:12] VITALS: BP 127/83
--- NOTE | 2021-12-28 11:44 | Electrocardiograph Report ---
[facility] Test Date: 2021-12-27 Test Time: 11:15:03 Pat Name: VALENTINA SINGH Department: Room: Gender: M [employer]: AF : 1980 Requested By: JEN CHAKRABORTY Order Number: [id number] Reading MD: Kenroy Lawson Measurements Intervals Foster Rate: 124 P: 74 VA: 142 QRS: 61 QRSD: 104 T: 55 QT: 314 QTc: 451 Interpretive Statements Sinus tachycardia Probable left atrial enlargement No previous ECG available for comparison Electronically Signed On 12-28-2021 11:44:14 EDT by Kenroy Lawson
== END 2021-12-28 01:11 | disposition home or self-care (01) ==
LOC: ED 10:49
DX: B34.9 Viral infection, unspecified (principal); R07.9 Chest pain, unspecified; M79.10 Myalgia, unspecified site; I50.9 Heart failure, unspecified; F17.200 Nicotine dependence, unspecified, uncomplicated
CPT/HCPCS: 36415; 71046; 80053; 83880; 84484; 85007; 85025; 87040; 93005; 99284